=== PATIENT | female | born 1945 | race Caucasian/White ===

== ENCOUNTER → 2023-04-17 15:38 | Outpatient (REF) | payer MEDICARE, SELFPAY | LOC: WOUND 15:38 | PROVIDERS: ATTENDING PHYSICIAN Surgery; REFERRING PHYSICIAN Internal Medicine | DX: L97.822 Non-pressure chronic ulcer of other part of left lower leg with fat layer exposed (principal); I87.2 Venous insufficiency (chronic) (peripheral); I73.9 Peripheral vascular disease, unspecified; E11.9 Type 2 diabetes mellitus without complications | CPT/HCPCS: 11042; 97597 ==